=== PATIENT | male | born 1975 | race Hispanic/Latino ===

== ENCOUNTER 2020-07-15 02:22 | Observation (INO) | payer OTHER, SELFPAY ==
[2020-07-15] MEDS ORDERED: Lorazepam 2 MG/ML VIAL ONE (02:29)
[2020-07-15 02:57] LABS: #Basophils 0.1 thou/uL (0.0-0.2); #Eosinphils 0.2 thou/uL (0.0-0.7); #Lymphocytes 2.1 thou/uL (1.20-3.40); #Monocytes 0.4 thou/uL (0.11-0.59); #Neutrophils 2.2 thou/uL (1.40-6.50); %Basophils 1.1 % (0.0-1.0); %Eosinophils 3.4 % (0.0-10.0); %Lymphocytes 42.6 % (21.0-51.0); %Monocytes 8.3 % (0.0-10.0); %Neutrophils 44.7 % (42.0-75.0); Hemoglobin 13.5 g/dL (14.0-18.0); Mean Corpuscular HGB CONC 35.3 g/dL (32.0-36.0); Mean Corpuscular Hemoglobin 31.4 pg (27.0-31.0); Mean Corpuscular Volume 89.2 fL (78.0-98.0); Mean Platelet Volume 8.2 fL (7.4-10.4); Platelet Count 209 thou/uL (130-400); RBC Distribution Width 12.7 % (11.5-14.5); Red Blood Cell (RBC) Count 4.31 mill/uL (4.70-6.10); White Blood Cell (WBC) Count 4.8 thou/uL (4.8-10.8)
[2020-07-15 03:18] LABS: ALT (SGPT) 33 U/L (8-55); AST (SGOT) 28 U/L (5-34); Acetaminophen Less than 6.0 mcg/mL (10.0-30.0); Albumin 4.2 g/dL (3.5-5.0); Alcohol 153 mg/dL (Less than 10); Alkaline Phosphatase 99 U/L (40-110); Anion Gap 14 mmol/L (10-20); BUN (Urea Nitrogen) 16 mg/dL (8.9-20.6); Bilirubin, Total 0.6 mg/dL (0.2-1.2); CK (CPK) 554 U/L (30-200); Calc. Creatinine Clearance 0 mL/min (70-130); Calcium 8.6 mg/dL (7.8-10.44); Carbon Dioxide 25 mmol/L (22-29); Chloride 107 mmol/L (98-107); Estimated GFR-MDRD Greater than 90; Globulin 2.5 g/dL (2.4-3.5); Glucose 103 mg/dL (70-105); Potassium 3.6 mmol/L (3.5-5.1); Protein, Total 6.7 g/dL (6.0-8.3); Salicylate Less than 8.0 mg/dL (15.0-30.0); Sodium 142 mmol/L (136-145)
[2020-07-15] MEDS ORDERED: Lorazepam 2 MG/ML VIAL SLOW IVP PRN (03:47)
--- NOTE | 2020-07-15 04:06 | PDOC.EVN ---
Event Note - Event Note Event Note: [id number] HP
[2020-07-15 04:34] LABS: Troponin I 0.018 ng/mL (< 0.028)
--- NOTE | 2020-07-15 05:08 | HP ---
CHIEF COMPLAINT: Drug overdose. HISTORY OF PRESENT ILLNESS: Mr. Campoverde is a 44-year-old male with past medical history of hypertension and diabetes type 2, who was brought to the emergency room, after the patient intentionally overdosed on cocaine. He said he has noted and swallowed 3.5 g of cocaine in an attempt to prevent his arrest. The patient on presentation was complaining of chest pain and shortness of breath. He said that he ingested this approximately an hour prior to arrival. Workup in the emergency room, the patient initially was restless, tachycardic, was given 2 mg IV Ativan. Currently, the patient is sleepy/lethargic. Initial cardiac workup including troponin and EKG no acute finding. The patient also was found to have elevated alcohol level. The patient is being admitted to hospital for further management. PAST MEDICAL HISTORY: 1. Hypertension. 2. Diabetes mellitus, type 2. PAST SURGICAL HISTORY: Unknown. The patient is currently sedated, unable to give history. FAMILY HISTORY: Unknown. SOCIAL HISTORY: The patient currently uses drugs, abuses cocaine, and he drinks socially. HOME MEDICATIONS: Please see home medication reconciliation for updated medications. ALLERGIES: NO KNOWN ALLERGIES. REVIEW OF SYSTEMS: Unable to obtain. The patient currently sedated, received 2 mg of IV Ativan. PHYSICAL EXAMINATION: GENERAL: The patient is sedated. VITAL SIGNS: Blood pressure is 110/70, pulse is 94, respiratory rate is 14, and oxygen saturations 97% on room air. HEAD AND NECK: Normocephalic and atraumatic. Neck is supple. No JVD. CHEST: Fair bilateral air entry. HEART: S1 and S2. Regular. ABDOMEN: Soft and nontender. Bowel sounds present. NEURO: Sedated. Moving extremities. PSYCH: Unable to assess. EXTREMITIES: No clubbing or cyanosis. LABORATORY DATA: Troponin 0.01 and electrolytes unremarkable. Alcohol is 153. ASSESSMENT: 1. Intentional drug/substance overdose. 2. Cocaine intoxication. 3. Chest pain. 4. History of hypertension. 5. History of diabetes type 2. PLAN: 1. Admit. 2. Telemonitoring. 3. Serial troponins. 4. IV fluids. 5. We will use IV benzodiazepine as needed for agitation/tachycardia if needed. 6. Reconcile home medications. 7. DVT prophylaxis appropriate. 8. Expected length of stay, at least 1 midnight if patient is stable and further workup negative. Job ID: [id number]
[2020-07-15 05:24] LABS: SARS-CoV-2 NAA Rapid Test Not Detected (NotDetected)
[2020-07-15 06:20] VITALS: BMI 33.5
[2020-07-15] MEDS: Sodium Chloride 0.9% 1,000 ML IV SCH ×2 (06:39→17:12)
--- NOTE | 2020-07-15 08:37 | RAD ---
PORTABLE CHEST 1 VIEW: DATE: 07/15/2020. TIME: 2:46 AM. HISTORY: Chest pain. FINDINGS: The heart size is normal. No focal areas of consolidation, pneumothoraces, or pleural effusions are seen. IMPRESSION: No radiographic evidence of acute cardiopulmonary process. POS: OFF
[2020-07-15] MEDS: Aspirin 325 mg Enteric Coated Tablet PO SCH (08:51)
[2020-07-15] MEDS ORDERED: Dextrose 5% in Water 1,000 ML IV PRN (11:51)
[2020-07-15] MEDS ORDERED: HumaLOG 300 UNITS/3 ML VIAL SC PRN (11:51)
[2020-07-15] MEDS ORDERED: Dextrose 50% Abboject 50 ML SYRINGE SLOW IVP PRN (11:51)
[2020-07-16] MEDS: Sodium Chloride 0.9% 1,000 ML IV SCH (03:38)
[2020-07-16 08:21] VITALS: BP 136/99; TEMP 98
[2020-07-16] MEDS: Aspirin 325 mg Enteric Coated Tablet PO SCH (08:57)
[2020-07-16] MEDS ORDERED: Lisinopril 20 MG TAB PO SCH (09:00)
[2020-07-16] MEDS ORDERED: Amlodipine 10 MG TAB PO SCH (09:00)
[2020-07-16] MEDS ORDERED: metFORMIN XR 500 MG TAB PO SCH (09:00)
[2020-07-16] MEDS ORDERED: Acetaminophen 650 MG/20.3 ML UDCUP PO PRN (09:34)
--- NOTE | 2020-07-17 04:21 | DIS ---
DATE OF ADMISSION: 07/15/2020 DATE OF DISCHARGE: 07/16/2020 PRIMARY CARE PROVIDER: Dr. Mary Cali. DISCHARGE DIAGNOSES: 1. Cocaine overdose. 2. Rhabdomyolysis. CONDITION OF PATIENT ON THE DAY OF DISCHARGE: Stable. I assessed Mr. Campoverde on the day of discharge. He denies any chest pain or shortness of breath. Vital signs are stable. S1 and S2 are heard, regular. Lungs are clear to auscultation bilaterally. HOSPITAL COURSE: Mr. Campoverde is a pleasant 44-year-old gentleman, who was admitted to [facility] on July 15, 2020, following intentional overdose of cocaine by swallowing 3.5 g of cocaine in an attempt to prevent his arrest. He was monitored on telemetry. He received benzodiazepines as needed. He improved clinically. He is being discharged to long term in a stable condition. DISCHARGE MEDICATIONS: 1. Metformin extended release 500 mg daily. 2. Lisinopril 40 mg daily. 3. Amlodipine 10 mg daily. DIET: Heart-healthy and diabetic. ACTIVITY: As tolerated. DISCHARGE DESTINATION: Care Home. FOLLOWUP: Post acute care followup. Patient is advised to follow up with the primary care provider in 3 days. Job ID: [id number]
== END 2020-07-16 11:57 ==
LOC: ERS 02:22 → 2SE 06:17
PROVIDERS: ADMIT Internal Medicine; ATTEND Internal Medicine
DX: T40.5X2A Poisoning by cocaine, intentional self-harm, initial encounter (principal); M62.82 Rhabdomyolysis; I10 Essential (primary) hypertension; E11.9 Type 2 diabetes mellitus without complications; Z79.84 Long term (current) use of oral hypoglycemic drugs; Z79.899 Other long term (current) drug therapy; Z20.828 Contact with and (suspected) exposure to other viral communicable diseases
CPT/HCPCS: 36415; 36416; 71045; 80053; 80307; 82550; 84484; 85025; 90471; 90732; 93005; 94760; 96361; G0009; G0378; J2060; U0002

== ENCOUNTER 2020-12-12 12:31 | Observation (INO) | payer OTHER, SELFPAY ==
[2020-12-12] MEDS ORDERED: Lorazepam 2 MG/ML VIAL ONE (12:43)
[2020-12-12 13:05] LABS: #Eosinphils 0.2 thou/uL (0.0-0.7); #Lymphocytes 1.3 thou/uL (1.20-3.40); #Monocytes 0.8 thou/uL (0.11-0.59); #Neutrophils 7.5 thou/uL (1.40-6.50); %Basophils 0.4 % (0.0-1.0); %Monocytes 8.6 % (0.0-10.0); Hemoglobin 13.6 g/dL (14.0-18.0); Mean Corpuscular HGB CONC 34.4 g/dL (32.0-36.0); Mean Corpuscular Hemoglobin 30.5 pg (27.0-31.0); Mean Corpuscular Volume 88.6 fL (78.0-98.0); Mean Platelet Volume 7.5 fL (7.4-10.4); Platelet Count 212 thou/uL (130-400); RBC Distribution Width 12.5 % (11.5-14.5); Red Blood Cell (RBC) Count 4.47 mill/uL (4.70-6.10); White Blood Cell (WBC) Count 9.8 thou/uL (4.8-10.8)
[2020-12-12 13:24] LABS: ALT (SGPT) 120 U/L (8-55); AST (SGOT) 146 U/L (5-34); Albumin 4.4 g/dL (3.5-5.0); Alkaline Phosphatase 86 U/L (40-110); Anion Gap 15 mmol/L (10-20); BUN (Urea Nitrogen) 20 mg/dL (8.9-20.6); Bilirubin, Total 0.8 mg/dL (0.2-1.2); Calc. Creatinine Clearance 0 mL/min (70-130); Calcium 8.7 mg/dL (7.8-10.44); Carbon Dioxide 27 mmol/L (22-29); Chloride 103 mmol/L (98-107); Globulin 2.3 g/dL (2.4-3.5); Glucose 98 mg/dL (70-105); Potassium 3.6 mmol/L (3.5-5.1); Protein, Total 6.7 g/dL (6.0-8.3); Sodium 141 mmol/L (136-145)
[2020-12-12 13:36] LABS: CK (CPK) 4528 U/L (30-200)
[2020-12-12] MEDS ORDERED: Lorazepam 2 MG/ML VIAL SLOW IVP PRN (18:54)
[2020-12-12] MEDS ORDERED: Ondansetron PF 4 MG/2 ML Vial IVP PRN (19:00)
[2020-12-12] MEDS ORDERED: Ondansetron ODT 4 MG TAB SL PRN (19:00)
--- NOTE | 2020-12-12 19:12 | PDOC.HHP ---
Hospitalist HPI agitation History of Present Illness: This is a 45 year old male with past medical history of diabetes, hypertension who presented to the hospital with agitation. The patient smoked cocaine for four days non-stop. I was unable to get a history from the patient, but per ER provider, the patient spent approximately 400 dollars on cocaine. He has a habit of doing cocaine when he gets drunk ; he gets drunk every few months. The patient was extremely agitated and restless on arrival and required 2 mg of ativan to calm him down. Thereafter, he was very sedated, but does arouse when prompted but does not say much. The patient complains only of nasal congestion. He denies chest pain, shortness of breath, abdominal pain, numbness in his arms or legs, or headaches. Apparently he has tried rehab before and he is unable to wean himself off cocaine ED Course: The patient had normal vitals when presenting to the ER. Labs showed hemoglobin 13.6. AST 146, ALT 120, CK 4528. The patient was given 2L of fluid and admitted for rhabdomyolysis. Allergies/Adverse Reactions: Allergy/AdvReac Type Severity Reaction Status Date / Time No Known Drug Allergies Allergy Verified 07/15/20 06:21 Home Medications: Medication Instructions Recorded Confirmed Type Amlodipine [Norvasc] 10 mg PO DAILY 07/15/20 07/15/20 History Lisinopril 40 mg PO DAILY 07/15/20 07/15/20 History metFORMIN HCl [Metformin HCl ER] 500 mg PO DAILY 07/15/20 07/15/20 History Past History: PMHx: Hypertension Diabetes Cocaine use Alcohol use PSHx: Unable to obtain FHx: unable to obtain since sedated Social: The patient smokes cocaine, tobacco and vapes. Hospitalist HPI ROS Constitutional: denies: fever Respiratory: denies: cough Cardiovascular: denies: chest pain Gastrointestinal: denies: nausea, vomiting, abdominal pain Genitourinary: denies: dysuria Hospitalist Exam General Appearance: NAD, awake alert General - other findings: patient is snoring, sedated but responds to name Neck: supple, symmetric, no JVD Heart: RRR, no murmur, no gallops, no rubs Respiratory: CTAB, no wheezes, no rales, no ronchi Gastrointestinal: soft, non-tender, non-distended, normal bowel sounds Extremities: no cyanosis, no clubbing, no edema Skin: normal turgor, no lesions, no rashes Neurological - other findings: sedated but responsive, very fidgety and restless Musculoskeletal: normal tone, normal strength Psychiatric: oriented to person Psychiatric - other findings: restless when waking the patient up Hospitalist Results Result Diagrams: 12/12/20 12:49 12/12/20 12:49 Lab results: Laboratory Last Values WBC 9.8 thou/uL (4.8-10.8) 12/12/20 12:49 RBC 4.47 mill/uL (4.70-6.10) L 12/12/20 12:49 Hgb 13.6 g/dL (14.0-18.0) L 12/12/20 12:49 Hct 39.7 % (42.0-52.0) L 12/12/20 12:49 MCV 88.6 fL (78.0-98.0) 12/12/20 12:49 MCH 30.5 pg (27.0-31.0) 12/12/20 12:49 MCHC 34.4 g/dL (32.0-36.0) 12/12/20 12:49 RDW 12.5 % (11.5-14.5) 12/12/20 12:49 Plt Count 212 thou/uL (130-400) 12/12/20 12:49 MPV 7.5 fL (7.4-10.4) 12/12/20 12:49 Neutrophils % 76.0 % (42.0-75.0) H 12/12/20 12:49 Lymphocytes % 13.0 % (21.0-51.0) L 12/12/20 12:49 Monocytes % 8.6 % (0.0-10.0) 12/12/20 12:49 Eosinophils % 2.0 % (0.0-10.0) 12/12/20 12:49 Basophils % 0.4 % (0.0-1.0) 12/12/20 12:49 Neutrophils # 7.5 thou/uL (1.40-6.50) H 12/12/20 12:49 Lymphocytes # 1.3 thou/uL (1.20-3.40) 12/12/20 12:49 Monocytes # 0.8 thou/uL (0.11-0.59) H 12/12/20 12:49 Eosinophils # 0.2 thou/uL (0.0-0.7) 12/12/20 12:49 Basophils # 0.0 thou/uL (0.0-0.2) 12/12/20 12:49 Sodium 141 mmol/L (136-145) 12/12/20 12:49 Potassium 3.6 mmol/L (3.5-5.1) 12/12/20 12:49 Chloride 103 mmol/L (98-107) 12/12/20 12:49 Carbon Dioxide 27 mmol/L (22-29) 12/12/20 12:49 Anion Gap 15 mmol/L (10-20) 12/12/20 12:49 BUN 20 mg/dL (8.9-20.6) 12/12/20 12:49 Creatinine 0.89 mg/dL (0.7-1.3) 12/12/20 12:49 Estimated GFR (MDRD) Greater than 90 12/12/20 12:49 Glucose 98 mg/dL (70-105) 12/12/20 12:49 Calcium 8.7 mg/dL (7.8-10.44) 12/12/20 12:49 Total Bilirubin 0.8 mg/dL (0.2-1.2) 12/12/20 12:49 AST 146 U/L (5-34) H 12/12/20 12:49 ALT 120 U/L (8-55) H 12/12/20 12:49 Alkaline Phosphatase 86 U/L (40-110) 12/12/20 12:49 Creatine Kinase 4528 U/L (30-200) H 12/12/20 12:49 Troponin I 0.019 ng/mL (< 0.028) 12/12/20 12:49 Serum Total Protein 6.7 g/dL (6.0-8.3) 12/12/20 12:49 Albumin 4.4 g/dL (3.5-5.0) 12/12/20 12:49 Globulin 2.3 g/dL (2.4-3.5) L 12/12/20 12:49 Albumin/Globulin Ratio 1.9 g/dL (1.2-2.2) 12/12/20 12:49 Hospitalist H&P A/P Plan: This is a 45 year old male who presented to the hospital after four days of cocaine use and was found to be have rhabdomyolysis Acute rhabdomyolysis - CK level 4528. Continue IV fluids and continue to trend CK level Acute drug induced encephalopathy - secondary to ativan Cocaine intoxication - will monitor on telemetry for any arrhythmias Transaminitis- likely secondary to rhabdomyolysis - AST 146, ALT 120. Will trend Anemia - Hb 13.6, will monitor Type II diabetes - fingersticks achs and insulin sliding scale Dispo: admit for obs
[2020-12-12] MEDS ORDERED: Dextrose 5% in Water 1,000 ML IV PRN (19:17)
[2020-12-12] MEDS ORDERED: Dextrose 50% Abboject 50 ML SYRINGE SLOW IVP PRN (19:17)
[2020-12-12] MEDS ORDERED: HumaLOG 300 UNITS/3 ML VIAL SC PRN (19:17)
[2020-12-12] MEDS ORDERED: Insulin Regular 300 UNITS/3 ML VIAL SC PRN (19:19)
[2020-12-12] MEDS: Sodium Chloride 0.9% 1,000 ML IV SCH (20:33)
[2020-12-13 07:24] LABS: Hemoglobin 12.8 g/dL (14.0-18.0); Mean Corpuscular HGB CONC 33.3 g/dL (32.0-36.0); Mean Corpuscular Hemoglobin 29.7 pg (27.0-31.0); Mean Platelet Volume 7.7 fL (7.4-10.4); Platelet Count 190 thou/uL (130-400); RBC Distribution Width 12.6 % (11.5-14.5); Red Blood Cell (RBC) Count 4.33 mill/uL (4.70-6.10); White Blood Cell (WBC) Count 5.5 thou/uL (4.8-10.8)
[2020-12-13 07:24] LABS: ALT (SGPT) 83 U/L (8-55); AST (SGOT) 77 U/L (5-34); Albumin 3.6 g/dL (3.5-5.0); Alkaline Phosphatase 75 U/L (40-110); Anion Gap 15 mmol/L (10-20); BUN (Urea Nitrogen) 13 mg/dL (8.9-20.6); Bilirubin, Total 0.7 mg/dL (0.2-1.2); CK (CPK) 1755 U/L (30-200); Calc. Creatinine Clearance 0 mL/min (70-130); Calcium 8.4 mg/dL (7.8-10.44); Carbon Dioxide 25 mmol/L (22-29); Chloride 106 mmol/L (98-107); Globulin 2.4 g/dL (2.4-3.5); Glucose 82 mg/dL (70-105); Potassium 3.2 mmol/L (3.5-5.1); Sodium 143 mmol/L (136-145)
[2020-12-13] MEDS: Sodium Chloride 0.9% 1,000 ML IV SCH (07:36)
[2020-12-13 07:37] VITALS: BMI 36.3
[2020-12-13 08:33] LABS: Amphetamine Not Detected (NotDetected); Barbiturates Screen Not Detected (NotDetected); Benzodiazepine Screen Detected (NotDetected); Cocaine Metabolite Screen Detected (NotDetected); Medtox Control Line Valid? VALID (VALID); Medtox Reader # READER 4; Methadone Not Detected (NotDetected); Methamphetamine Not Detected (NotDetected); Opiate Screen Not Detected (NotDetected); Oxycodone Screen Not Detected (NotDetected); Phencyclidine (PCP) Not Detected (NotDetected); THC/Cannabinoid Screen Not Detected (NotDetected); Tricyclic Screen Not Detected (NotDetected)
--- NOTE | 2020-12-13 09:55 | PDOC.HOSPP ---
- Subjective Encounter Date: 12/13/20 Subjective: feels better then yesterday. - Objective Vital Signs & Weight: Vital Signs (12 hours) Temp Pulse Resp BP Pulse Ox 12/13/20 07:30 98.8 F 99 16 149/82 H 93 L 12/13/20 04:00 98.4 F 72 16 135/78 92 L 12/13/20 00:00 82 113/79 Weight Weight 253 lb 8.505 oz Result Diagrams: 12/13/20 04:45 12/13/20 03:30 Additional Labs: Accuchecks 12/13/20 12/13/20 05:36 00:19 POC Glucose 86 80 Hospitalist ROS - Medication Medications: Active Medications Generic Name Dose Route Start Last Admin Trade Name Freq PRN Reason Stop Dose Admin Sodium Chloride 1,000 mls @ 150 mls/hr 12/12/20 19:00 12/13/20 07:36 Normal Saline 0.9% IV 12/13/20 03:05 1,000 mls .[id number] [facility] Hospitalist Exam Vitals: Vital Signs (12 hours) Temp Pulse Resp BP Pulse Ox 12/13/20 07:30 98.8 F 99 16 149/82 H 93 L 12/13/20 04:00 98.4 F 72 16 135/78 92 L 12/13/20 00:00 82 113/79 Weight Weight 253 lb 8.505 oz General Appearance: NAD Eye: PERRL, anicteric sclera ENT: normocephalic atraumatic, no oropharyngeal lesions Neck: supple, symmetric, no JVD, no thyromegaly Heart: RRR, no murmur, no gallops Respiratory: CTAB, no wheezes, no rales, no ronchi, normal chest expansion, normal percussion Gastrointestinal: soft, non-tender, non-distended, normal bowel sounds, no palpable masses, no hepatomegaly Extremities: no cyanosis, no clubbing Hosp A/P (1) Rhabdomyolysis Code(s): M62.82 - RHABDOMYOLYSIS Status: Acute (2) Diabetes Code(s): E11.9 - TYPE 2 DIABETES MELLITUS WITHOUT COMPLICATIONS Status: Acute (3) Cocaine abuse Code(s): F14.10 - COCAINE ABUSE, UNCOMPLICATED Status: Acute (4) Alcohol abuse Code(s): F10.10 - ALCOHOL ABUSE, UNCOMPLICATED Status: Acute (5) Hypertension Code(s): I10 - ESSENTIAL (PRIMARY) HYPERTENSION Status: Acute - Plan plan for today 2/3 He is doing better the yesterday. will continue with IVF and recheck CK levels in am. continue with SS. continue to monitor BP.
[2020-12-13 15:53] VITALS: BP 128/82; TEMP 98.1
[2020-12-13] MEDS ORDERED: Potassium Chloride 20 MEQ TAB PO SCH (17:45)
--- NOTE | 2020-12-13 17:48 | PDOC.DS.DS ---
Provider Date of Admission: 12/12/20 15:10 Date of Discharge: 12/13/20 Admitting Provider: Carly Christensen MD Primary Care Physician: NO PCP PROVIDER Course Hospital Course: This is a 45 year old male with past medical history of diabetes, hypertension who presented to the hospital with agitation. The patient smoked cocaine for four days non-stop. I was unable to get a history from the patient, but per ER provider, the patient spent approximately 400 dollars on cocaine. He has a habit of doing cocaine when he gets drunk ; he gets drunk every few months. The patient was extremely agitated and restless on arrival and required 2 mg of ativan to calm him down. Thereafter, he was very sedated, but does arouse when prompted but does not say much. He was found to have elevated CK levels. During his stay he received aggressive IVF hydration and his CK decreased significantly, today he appeared to do well, another CK level indicated favorable progression and his kidney function remained normal, I had a discussion with him about possibly discharging him and he was agreeable with that. He is advised to hydrate himself with water and Gaterade, not to consume alcohol or drugs, and follow-up with PCP in one week. more then 30 min was spent to discharge him. Lab Results: 12/13/20 04:45 12/13/20 03:30 Abnormal Lab Results - Last 48 hrs 12/12/20 12:49: AST 146 H, ALT 120 H, Creatine Kinase 4528 H, Globulin 2.3 L 12/12/20 12:49: RBC 4.47 L, Hgb 13.6 L, Hct 39.7 L, Neutrophils % 76.0 H, Lymphocytes % 13.0 L, Neutrophils # 7.5 H, Monocytes # 0.8 H 12/13/20 03:30: Potassium 3.2 L, AST 77 H, ALT 83 H, Creatine Kinase 1755 H 12/13/20 04:45: RBC 4.33 L, Hgb 12.8 L, Hct 38.5 L 12/13/20 07:20: U Benzodiazepines Scrn Detected H, U Cocaine Metab Screen Detected H 12/13/20 16:18: Creatine Kinase 1004 H Vitals: Vital Signs (12 hours) Temp Pulse Resp BP Pulse Ox 12/13/20 15:52 98.1 F 58 L 18 128/82 97 12/13/20 12:00 98.5 F 72 16 131/85 96 12/13/20 07:30 98.8 F 99 16 149/82 H 93 L Weight Weight 253 lb 8.505 oz Physical Exam: The patient was seen and examined on the day of discharge. Eye: PERRL, anicteric sclera ENT: normocephalic atraumatic, no oropharyngeal lesions Neck: supple, symmetric, no JVD Respiratory: CTAB, no wheezes, no rales Cardiovascular: RRR, no murmur, no gallops, no rubs Problem (1) Rhabdomyolysis Code(s): M62.82 - RHABDOMYOLYSIS Status: Acute (2) Diabetes Code(s): E11.9 - TYPE 2 DIABETES MELLITUS WITHOUT COMPLICATIONS Status: Acute (3) Cocaine abuse Code(s): F14.10 - COCAINE ABUSE, UNCOMPLICATED Status: Acute (4) Alcohol abuse Code(s): F10.10 - ALCOHOL ABUSE, UNCOMPLICATED Status: Acute (5) Hypertension Code(s): I10 - ESSENTIAL (PRIMARY) HYPERTENSION Status: Acute Time Spent in discharge related activities (mins): 45 Plan Home Medications: Medication Instructions Recorded Confirmed Type RX: Amlodipine [Norvasc] 10 mg PO DAILY 07/15/20 12/13/20 History RX: Lisinopril 40 mg PO DAILY 07/15/20 12/13/20 History RX: metFORMIN HCl [Metformin HCl 500 mg PO DAILY 07/15/20 12/13/20 History ER] Allergies: No Known Drug Allergies Allergy (Verified 12/13/20 07:50) PER ER NOTES Discharge Instructions:: follow-up with your PCP in a week, for check-up and blood work. Additional Dietary Instructions:: hydrate yourself with Gatorade and water for 4 to 5 days, avoid sternuous activities, and do not conusme alcohol or drugs. Referrals: PROVIDER,NO PCP [Primary Care Provider] - Disposition: HOME Quality CORE MEASURES:: N/A
[2020-12-13 19:28] LABS: SARS-CoV-2 PCR by NAA Not Detected (NotDetected)
--- NOTE | 2020-12-16 16:48 | EKG ---
Test Reason : Blood Pressure : / mmHG Vent. Rate : 099 BPM Atrial Rate : 099 BPM P-R Int : 146 ms QRS Dur : 088 ms QT Int : 364 ms P-R-T Axes : 043 002 039 degrees QTc Int : 467 ms Normal sinus rhythm Normal ECG Confirmed by DOT SOTO, XOCHITL Shelby ([id number]), editorial cartoonist MOHAMUD BACK ([id number]) on 12/16/2020 4:47:45 PM Referred By: Confirmed By:XOCHITL CHRIS MD
== END 2020-12-13 17:00 | disposition home or self-care (01) ==
LOC: ERS 12:31 → 2NO 15:10
PROVIDERS: ADMIT Internal Medicine; ATTEND Internal Medicine
DX: M62.82 Rhabdomyolysis (principal); G92 Toxic encephalopathy; T42.4X5A Adverse effect of benzodiazepines, initial encounter; F14.129 Cocaine abuse with intoxication, unspecified; F10.10 Alcohol abuse, uncomplicated; F17.290 Nicotine dependence, other tobacco product, uncomplicated; E11.9 Type 2 diabetes mellitus without complications; I10 Essential (primary) hypertension; D64.9 Anemia, unspecified; Z79.84 Long term (current) use of oral hypoglycemic drugs; Z79.899 Other long term (current) drug therapy; Z20.822 Contact with and (suspected) exposure to COVID-19
CPT/HCPCS: 36415; 36416; 80053; 80306; 82550; 84484; 85025; 85027; 87635; 93005; 96374; G0378; J2060; U0003; U0005

== ENCOUNTER 2021-02-09 03:04 | Emergency (ER) | payer SELFPAY | END 2021-02-09 03:38 | LOC: ERS 03:04 | DX: R07.9 Chest pain, unspecified (principal); R06.4 Hyperventilation; E11.9 Type 2 diabetes mellitus without complications; E78.5 Hyperlipidemia, unspecified; E78.00 Pure hypercholesterolemia, unspecified; I10 Essential (primary) hypertension | CPT/HCPCS: 71045; 93005 ==

== ENCOUNTER 2021-08-05 01:53 | Observation (INO) | payer SELFPAY ==
[2021-08-05] MEDS ORDERED: diphenhydrAMINE 50 MG/ML VIAL ONE ×2 (02:08→02:51)
[2021-08-05] MEDS ORDERED: methylPREDNISolone Sod Succ/PF 125 MG/2 ML VIAL ONE (02:08)
[2021-08-05] MEDS ORDERED: Famotidine/PF 20 mg/2ml Vial ONE (02:08)
[2021-08-05 02:13] LABS: #Basophils 0.1 thou/uL (0.0-0.2); #Eosinphils 0.2 thou/uL (0.0-0.7); #Lymphocytes 2.6 thou/uL (1.20-3.40); #Monocytes 0.4 thou/uL (0.11-0.59); #Neutrophils 2.8 thou/uL (1.40-6.50); %Basophils 1.2 % (0.0-1.0); %Eosinophils 3.2 % (0.0-10.0); %Monocytes 7.1 % (0.0-10.0); %Neutrophils 45.5 % (42.0-75.0); Hemoglobin 15.4 g/dL (14.0-18.0); Mean Corpuscular HGB CONC 33.4 g/dL (32.0-36.0); Mean Corpuscular Hemoglobin 29.8 pg (27.0-31.0); Mean Corpuscular Volume 89.2 fL (78.0-98.0); Mean Platelet Volume 7.9 fL (7.4-10.4); Platelet Count 220 thou/uL (130-400); RBC Distribution Width 13.1 % (11.5-14.5); Red Blood Cell (RBC) Count 5.16 mill/uL (4.70-6.10); White Blood Cell (WBC) Count 6.1 thou/uL (4.8-10.8)
[2021-08-05 02:35] LABS: ALT (SGPT) 31 U/L (8-55); AST (SGOT) 23 U/L (5-34); Acetaminophen Less than 6.0 mcg/mL (10.0-30.0); Albumin 4.3 g/dL (3.5-5.0); Alcohol 213 mg/dL (Less than 10); Alkaline Phosphatase 105 U/L (40-110); Anion Gap 18 mmol/L (10-20); BUN (Urea Nitrogen) 21 mg/dL (8.9-20.6); Bilirubin, Total 0.3 mg/dL (0.2-1.2); CK (CPK) 165 U/L (30-200); Calc. Creatinine Clearance 0 mL/min (70-130); Carbon Dioxide 21 mmol/L (22-29); Chloride 105 mmol/L (98-107); Glucose 91 mg/dL (70-105); Potassium 4.1 mmol/L (3.5-5.1); Protein, Total 7.3 g/dL (6.0-8.3); Salicylate Less than 8.0 mg/dL (15.0-30.0); Sodium 140 mmol/L (136-145)
[2021-08-05] MEDS ORDERED: Lorazepam 2 MG/ML VIAL ONE (02:50)
[2021-08-05] MEDS ORDERED: Haloperidol Lactate 5 MG/ML VIAL ONE (02:51)
[2021-08-05 06:23] LABS: Lactic Acid 3.5 mmol/L (0.5-2.2)
[2021-08-05] MEDS ORDERED: Lactated Ringer's 1,000 ML IV SCH (07:30)
[2021-08-05] MEDS ORDERED: Acetaminophen 325 MG TAB PO PRN (09:18)
[2021-08-05] MEDS ORDERED: hydrALAZINE 20 MG/ML VIAL SLOW IVP PRN (09:18)
[2021-08-05] MEDS ORDERED: Dextrose 50% Abboject 50 ML SYRINGE SLOW IVP PRN (09:18)
[2021-08-05] MEDS ORDERED: Calcium Carbonate 500 MG ChewTAB PO PRN (09:18)
[2021-08-05] MEDS ORDERED: HumaLOG 300 UNITS/3 ML VIAL SC PRN ×2 (09:18)
[2021-08-05] MEDS ORDERED: Dextrose 5% in Water 1,000 ML IV PRN (09:18)
[2021-08-05 09:45] VITALS: BMI 33.5
[2021-08-05 15:20] VITALS: BP 153/94; TEMP 98.6
[2021-08-05 23:32] LABS: SARS-CoV-2 PCR by NAA Not Detected (NotDetected)
== END 2021-08-05 18:00 | disposition home or self-care (01) ==
LOC: ERS 01:53 → SUATTDRO 01:53 → 2NO 04:45 → INTOOBSV 04:45
PROVIDERS: ADMIT Internal Medicine; ATTEND Internal Medicine
DX: T46.4X2A Poisoning by angiotensin-converting-enzyme inhibitors, intentional self-harm, initial encounter (principal); T46.1X2A Poisoning by calcium-channel blockers, intentional self-harm, initial encounter; T38.3X2A Poisoning by insulin and oral hypoglycemic [antidiabetic] drugs, intentional self-harm, initial encounter; I10 Essential (primary) hypertension; E11.9 Type 2 diabetes mellitus without complications; Z20.822 Contact with and (suspected) exposure to COVID-19; Z79.84 Long term (current) use of oral hypoglycemic drugs; Z79.899 Other long term (current) drug therapy
CPT/HCPCS: 36415; 36416; 80053; 80307; 82550; 83605; 84443; 85025; G0378; J1200; J1630; J2060; J2930; J7120; S0028; U0003; U0005

== ENCOUNTER 2021-11-28 18:23 | Emergency (ER) | payer SELFPAY ==
[2021-11-28] MEDS ORDERED: Acetaminophen 500 MG TAB ONE (19:02)
== END 2021-11-28 19:21 | disposition home or self-care (01) ==
LOC: ERS 18:23
DX: R53.1 Weakness (principal); E11.9 Type 2 diabetes mellitus without complications; E78.5 Hyperlipidemia, unspecified; E78.00 Pure hypercholesterolemia, unspecified; Z79.84 Long term (current) use of oral hypoglycemic drugs
CPT/HCPCS: 36416; 93005